=== PATIENT | male | born 1955 | race African-American/Black ===

== ENCOUNTER 2017-11-17 19:45 | Emergency (ER) | payer SELFPAY ==
[~2017-11-17] VITALS: Ht 175.3 cm; Wt 93.0 kg
[2017-11-17] MEDS ORDERED: DEXTROSE 50% WATER 50ML SYRINGE IV ONE (20:45)
[2017-11-17 21:59] LABS: BASOPHILS % 0.7 % (0.0-2.0); EOSINOPHILS % 2.2 % (0.0-5.0); HEMATOCRIT. 42.1 % (42.0-52.0); HEMOGLOBIN. 14.4 g/dL (14.0-18.0); LYMPHOCYTES % 14.8 % (20.0-50.0); MEAN PLATELET VOLUME 9.1 fl (7.4-10.4); NEUTROPHILS % 72.3 % (40.0-76.0); PLATELET 278 x1000/uL (130-400); RED BLOOD CELL COUNT 4.78 mill/uL (4.7-6.1); RED CELL DISTRIBUTION WIDTH 13.3 % (11.6-14.6)
[2017-11-17 22:05] LABS: CHLORIDE 102 mEq/L (98-107)
[2017-11-17 22:38] VITALS: BP 154/89
== END 2017-11-17 22:49 | disposition home or self-care (01) ==
LOC: ER 19:45
DX: E11.649 Type 2 diabetes mellitus with hypoglycemia without coma (principal); I10 Essential (primary) hypertension; Z88.0 Allergy status to penicillin
CPT/HCPCS: 80053; 82962; 85025; 96374; 99284